=== PATIENT | male | born 1950 | race Caucasian/White ===

== ENCOUNTER → 2017-08-10 | Outpatient (CLI) | payer OTHER ==
[2017-08-10] VITALS (7 sets, daily range): BP systolic 104–127; BP diastolic 58–65
[~2017-08-10] VITALS: Ht 162.6 cm; Wt 66.0 kg
[~2017-08-10] MED LIST: NAPROSYN500 MG PO
== END | disposition home or self-care (01) ==
LOC: IVINF 12:47
DX: D64.9 Anemia, unspecified (principal)
CPT/HCPCS: 36430; 86999; P9016

== ENCOUNTER 2017-08-12 14:28 | Inpatient (IN) | payer OTHER ==
[~2017-08-12] VITALS: Ht 162.6 cm; Wt 66.4 kg
[2017-08-12 15:39] LABS: CHLORIDE 101 mEq/L (99-109); SODIUM 131 mEq/L (136-147)
[2017-08-12 15:39] LABS: INTER. NORMALIZED RATIO 1.1
[2017-08-12 15:40] LABS: GLUCOSE 118 mg/dL (70-99)
[2017-08-12 15:41] LABS: PTT 26.4 SEC (25-37)
[2017-08-12 15:44] LABS: CREATININE 0.7 mg/dL (0.6-1.3); GFR ESTIMATE (CALCULATED) > 59 mL/min/ (58.99-99999)
[2017-08-12 15:45] LABS: UREA NITROGEN (BUN) 11 mg/dL (9-23)
[2017-08-12 15:59] LABS: POTASSIUM 3.4 mEq/L (3.7-5.4)
[2017-08-12 16:09] LABS: HEMATOCRIT 30.6 % (38.0-50.0); MCH 23.5 PG (29.0-34.0); MCV 71.2 FL (86-99); PLATELET COUNT 584 K/uL (156-360); RBC DIS.WIDTH-CV 23.5 % (11.8-14.6)
[2017-08-12 16:10] LABS: HEMOGLOBIN 10.1 G/DL (12.5-16.6)
[2017-08-12 19:57] VITALS: BP 154/70
[2017-08-12 22:35] VITALS: BP 109/57
[2017-08-13] VITALS (9 sets, daily range): BP systolic 108–134; BP diastolic 58–72
[2017-08-13 06:16] LABS: IRON 11 MCG/DL (35-150); TRANSFERRIN (TIBC) 113.1 mg/dL (215-380); TRANSFERRIN SATUR. 10 % (20-55)
[2017-08-13 12:17] LABS: HEMATOCRIT 29.3 % (38.0-50.0); HEMOGLOBIN 9.1 G/DL (12.5-16.6); MCH 23.1 PG (29.0-34.0); MCHC 31.1 G/DL (30.0-36.0); MCV 74.4 FL (86-99); PLATELET COUNT 607 K/uL (156-360); RBC DIS.WIDTH-CV 24.1 % (11.8-14.6); RBC DIS.WIDTH-SD 63.8 % (39-53); RED BLOOD COUNT 3.94 M/uL (4.00-5.50); WHITE BLOOD COUNT 15.8 K/uL (4.1-10.2)
[2017-08-13 12:18] LABS: CHLORIDE 105 MEQ/L (99-109); CREATININE 0.5 MG/DL (0.6-1.3); GFR ESTIMATE (CALCULATED) > 59 mL/min/ (58.99-99999); SODIUM 133 MEQ/L (136-147); UREA NITROGEN (BUN) 10 mg/dL (9-23)
[2017-08-13 12:23] LABS: BASOPHIL (%) 0.3 % (0-1); BASOPHIL COUNT 0.1 K/uL (0-0.1); EOSINOPHIL (%) 0.2 % (0-5); IMMATURE GRANULOCYTE (%) 1.3 % (0.0-0.7); LYMPHOCYTE COUNT 1.1 K/uL (1.0-2.8); MONOCYTE (%) 4.9 % (3-12); MONOCYTE COUNT 0.8 K/uL (0-0.8); NEUTROPHIL (%) 86.3 % (45-76); NEUTROPHIL COUNT 13.6 K/uL (1.8-6.4)
[2017-08-13 12:24] LABS: GLUCOSE 88 mg/dL (70-99)
[2017-08-13 23:29] LABS: C DIFF TOXIN NEGATIVE (NEGATIVE)
[2017-08-14 04:00] VITALS: BP 110/63
[2017-08-14 09:04] VITALS: BP 106/60
[2017-08-14 12:06] VITALS: BP 110/62
[2017-08-14 15:08] LABS: STOOL OCCULT BLD 1ST SPECIMEN NEGATIVE
[2017-08-14 16:49] VITALS: BP 120/61
[2017-08-14 18:17] LABS: Folate, RBC 29.2 % (())
[2017-08-15 00:10] VITALS: BP 135/63
[2017-08-15 04:20] VITALS: BP 107/60
[2017-08-15 05:54] LABS: HEMATOCRIT 30.6 % (38.0-50.0); HEMOGLOBIN 9.4 G/DL (12.5-16.6); MCH 22.5 PG (29.0-34.0); MCHC 30.7 G/DL (30.0-36.0); MCV 73.2 FL (86-99); PLATELET COUNT 640 K/uL (156-360); RBC DIS.WIDTH-CV 23.9 % (11.8-14.6); RBC DIS.WIDTH-SD 61.5 % (39-53); RED BLOOD COUNT 4.18 M/uL (4.00-5.50); WHITE BLOOD COUNT 19.3 K/uL (4.1-10.2)
[2017-08-15 07:41] VITALS: BP 100/61
[2017-08-15 09:12] LABS: C DIFF TOXIN ND (NEGATIVE)
[2017-08-15 10:35] LABS: CHLORIDE 102 MEQ/L (99-109); POTASSIUM 3.7 MEQ/L (3.7-5.4); SODIUM 131 MEQ/L (136-147)
[2017-08-15 11:00] LABS: CREATININE 0.5 MG/DL (0.6-1.3); GFR ESTIMATE (CALCULATED) > 59 mL/min/ (58.99-99999); UREA NITROGEN (BUN) 9 mg/dL (9-23)
[2017-08-15 11:01] LABS: GLUCOSE 136 mg/dL (70-99)
[2017-08-15 11:56] VITALS: BP 99/57
[2017-08-15 15:52] VITALS: BP 108/65
[2017-08-16] VITALS (8 sets, daily range): BP systolic 91–129; BP diastolic 55–72
[2017-08-16 06:55] LABS: INTER. NORMALIZED RATIO 1.2
[2017-08-16 06:58] LABS: PTT 56.8 SEC (25-37)
[2017-08-16 07:06] LABS: HEMATOCRIT 35.2 % (38.0-50.0); HEMOGLOBIN 11.2 G/DL (12.5-16.6); MCH 23.5 PG (29.0-34.0); MCHC 31.8 G/DL (30.0-36.0); MCV 73.9 FL (86-99); PLATELET COUNT 783 K/uL (156-360); RBC DIS.WIDTH-CV 24.7 % (11.8-14.6); RED BLOOD COUNT 4.76 M/uL (4.00-5.50); WHITE BLOOD COUNT 18.4 K/uL (4.1-10.2)
[2017-08-16 07:11] LABS: CHLORIDE 101 MEQ/L (99-109); CREATININE 0.7 MG/DL (0.6-1.3); GFR ESTIMATE (CALCULATED) > 59 mL/min/ (58.99-99999); GLUCOSE 117 mg/dL (70-99); POTASSIUM 3.7 MEQ/L (3.7-5.4); SODIUM 134 MEQ/L (136-147); UREA NITROGEN (BUN) 9 mg/dL (9-23)
[2017-08-17 04:20] VITALS: BP 111/57
[2017-08-17 06:25] LABS: HEMATOCRIT 30.5 % (38.0-50.0); HEMOGLOBIN 9.5 G/DL (12.5-16.6); MCH 23.2 PG (29.0-34.0); MCHC 31.1 G/DL (30.0-36.0); MCV 74.4 FL (86-99); PLATELET COUNT 729 K/uL (156-360); RBC DIS.WIDTH-CV 24.3 % (11.8-14.6); RBC DIS.WIDTH-SD 63.5 % (39-53); WHITE BLOOD COUNT 18.8 K/uL (4.1-10.2)
[2017-08-17 06:55] LABS: CHLORIDE 100 MEQ/L (99-109); CREATININE 0.7 MG/DL (0.6-1.3); GFR ESTIMATE (CALCULATED) > 59 mL/min/ (58.99-99999); GLUCOSE 93 mg/dL (70-99); POTASSIUM 3.4 MEQ/L (3.7-5.4); SODIUM 132 MEQ/L (136-147); UREA NITROGEN (BUN) 9 mg/dL (9-23)
[2017-08-17 07:21] VITALS: BP 129/59
[2017-08-17 10:46] LABS: MAGNESIUM 2.3 mg/dl (1.3-2.7)
[2017-08-17 10:59] VITALS: BP 106/55
[2017-08-17 15:27] VITALS: BP 120/87
[2017-08-17 19:30] VITALS: BP 136/82
[2017-08-18 04:00] VITALS: BP 124/86
[2017-08-18 06:19] LABS: HEMOGLOBIN 8.3 G/DL (12.5-16.6); MCH 23.2 PG (29.0-34.0); MCHC 31.9 G/DL (30.0-36.0); MCV 72.8 FL (86-99); PLATELET COUNT 613 K/uL (156-360); RBC DIS.WIDTH-CV 24.1 % (11.8-14.6); RBC DIS.WIDTH-SD 62.1 % (39-53); RED BLOOD COUNT 3.57 M/uL (4.00-5.50); WHITE BLOOD COUNT 17.2 K/uL (4.1-10.2)
[2017-08-18 06:41] LABS: CHLORIDE 100 MEQ/L (99-109); CREATININE 0.6 MG/DL (0.6-1.3); GFR ESTIMATE (CALCULATED) > 59 mL/min/ (58.99-99999); GLUCOSE 93 mg/dL (70-99); POTASSIUM 3.2 MEQ/L (3.7-5.4); SODIUM 130 MEQ/L (136-147); UREA NITROGEN (BUN) 7 mg/dL (9-23)
[2017-08-18] MEDS ORDERED: XARELTO15 MG PO (08:06)
[2017-08-18] MEDS ORDERED: PANTOPRAZOLE SO40 MG PO (08:06)
[2017-08-18] MEDS ORDERED: XARELTO20 MG PO (08:06)
[2017-08-18] MEDS ORDERED: SODIUM CHLORIDE1 G1 PO (08:10)
[2017-08-18 08:12] VITALS: BP 130/60
[2017-08-18] MEDS ORDERED: FEROSUL325 MG PO (08:15)
[2017-08-18 11:52] VITALS: BP 120/60
== END 2017-08-18 12:48 | disposition home or self-care (01) | DRG 374 ==
LOC: EME 14:28 → 5EAST 16:10 → EDOF 16:10 → ENRESERV 16:13 → 5EAST 19:44
PROVIDERS: Emergency Medicine; Hospitalist; Internal Medicine; Specialist
PROC: 0DBK8ZX Excision of Ascending Colon, Via Natural or Artificial Opening Endoscopic, Diagnostic (ICD-10-PCS; principal; 2017-08-16)
PROC: 0DJ08ZZ Inspection of Upper Intestinal Tract, Via Natural or Artificial Opening Endoscopic (ICD-10-PCS; principal; 2017-08-16)
DX: C18.2 Malignant neoplasm of ascending colon (principal); I26.99 Other pulmonary embolism without acute cor pulmonale; E87.1 Hypo-osmolality and hyponatremia; E87.6 Hypokalemia; D50.0 Iron deficiency anemia secondary to blood loss (chronic); E83.51 Hypocalcemia; K92.1 Melena; R55 Syncope and collapse; D47.3 Essential (hemorrhagic) thrombocythemia; K64.8 Other hemorrhoids; K29.70 Gastritis, unspecified, without bleeding; K29.80 Duodenitis without bleeding
CPT/HCPCS: 36415; 36430; 74020; 80048; 80048 91; 80053; 82272; 82378; 82607; 82747 90; 83540; 83735; 84466; 85025; 85027; 85610; 85730; 86850; 86900; 86901; 86920; 86999; 87177; 87493; 87506; 88305; 93005; 93970; 99281; 99285; C9113; J2405; J2765; J3480; J7030; J7050; P9016; Q0138

== ENCOUNTER 2017-08-29 10:58 | Inpatient (IN) | payer OTHER ==
[~2017-08-29] VITALS: Ht 162.6 cm; Wt 62.5 kg
[~2017-08-29 10:58] MED LIST changes: +FEROSUL325 MG PO; +PANTOPRAZOLE SO40 MG PO; +SODIUM CHLORIDE1 G1 PO; +XARELTO15 MG PO; +XARELTO20 MG PO
[2017-08-29 12:00] LABS: HEMATOCRIT 26.8 % (38.0-50.0); HEMOGLOBIN 8.8 G/DL (12.5-16.6); MCH 24.3 PG (29.0-34.0); MCHC 32.8 G/DL (30.0-36.0); PLATELET COUNT 684 K/uL (156-360); RBC DIS.WIDTH-CV 25.9 % (11.8-14.6); RBC DIS.WIDTH-SD 65.5 % (39-53); RED BLOOD COUNT 3.62 M/uL (4.00-5.50); WHITE BLOOD COUNT 21.3 K/uL (4.1-10.2)
[2017-08-29 12:03] LABS: ALBUMIN 1.6 g/dL (3.2-4.8); CHLORIDE 102 mEq/L (99-109); POTASSIUM 3.9 mEq/L (3.7-5.4); SODIUM 130 mEq/L (136-147)
[2017-08-29 12:05] LABS: GLUCOSE 136 mg/dL (70-99); TOTAL PROTEIN 5.3 g/dL (6.4-8.3)
[2017-08-29 12:07] LABS: TOTAL BILIRUBIN 0.3 mg/dL (0.0-1.0)
[2017-08-29 12:09] LABS: ALKALINE PHOSPHATASE 124 IU/L (3-129); CREATININE 0.7 mg/dL (0.6-1.3); GFR ESTIMATE (CALCULATED) > 59 mL/min/ (58.99-99999)
[2017-08-29 12:10] LABS: UREA NITROGEN (BUN) 14 mg/dL (9-23)
[2017-08-29 12:11] LABS: AST (GOT) 18 IU/L (2-34)
[2017-08-29 12:12] LABS: ALT (GPT) 10 IU/L (3-49); LIPASE 17 U/L (1.0-51.0)
[2017-08-29] MEDS ORDERED: PROTONIX40 MG PO (14:32)
[2017-08-29 15:13] LABS: INTER. NORMALIZED RATIO 2.4
[2017-08-29 18:36] LABS: APPEARANCE CLEAR ((CLEAR)); BILIRUBIN NEGATIVE; BLOOD NEGATIVE; COLOR YELLOW ((YELLOW)); GLUCOSE (STRIP) NEGATIVE; KETONES NEGATIVE; LEUKOCYTES NEGATIVE; NITRITE NEGATIVE; PROTEIN (STRIP) NEGATIVE; SPECIFIC GRAVITY 1.018 (1.000-1.030); UCUL ADDED? NO; UROBILINOGEN 0.2 MG/DL (0.2-1.0)
[2017-08-29 19:49] VITALS: BP 127/76
[2017-08-29 23:03] VITALS: BP 101/54
[2017-08-30 08:00] VITALS: BP 100/59
[2017-08-30 08:56] LABS: HEMATOCRIT 22.8 % (38.0-50.0); HEMOGLOBIN 7.2 G/DL (12.5-16.6); MCH 23.5 PG (29.0-34.0); MCHC 31.6 G/DL (30.0-36.0); MCV 74.5 FL (86-99); PLATELET COUNT 613 K/uL (156-360); RBC DIS.WIDTH-CV 26.4 % (11.8-14.6); RBC DIS.WIDTH-SD 67.5 % (39-53); RED BLOOD COUNT 3.06 M/uL (4.00-5.50); WHITE BLOOD COUNT 17.8 K/uL (4.1-10.2)
[2017-08-30 09:15] LABS: CHLORIDE 109 mEq/L (99-109); POTASSIUM 3.2 mEq/L (3.7-5.4); SODIUM 132 mEq/L (136-147)
[2017-08-30 09:20] LABS: GLUCOSE 78 mg/dL (70-99)
[2017-08-30 09:21] LABS: CREATININE 0.5 mg/dL (0.6-1.3); GFR ESTIMATE (CALCULATED) > 59 mL/min/ (58.99-99999)
[2017-08-30 09:22] LABS: UREA NITROGEN (BUN) 13 mg/dL (9-23)
[2017-08-30 11:59] VITALS: BP 110/75
[2017-08-30 15:54] LABS: HEMATOCRIT 22.6 % (38.0-50.0); HEMOGLOBIN 7.4 G/DL (12.5-16.6); MCV 75.3 FL (86-99)
[2017-08-30 16:26] VITALS: BP 119/83
[2017-08-30 19:45] VITALS: BP 99/55
[2017-08-30 23:52] VITALS: BP 117/61
[2017-08-31 06:38] LABS: CHLORIDE 108 MEQ/L (99-109); CREATININE 0.5 MG/DL (0.6-1.3); GFR ESTIMATE (CALCULATED) > 59 mL/min/ (58.99-99999); GLUCOSE 91 mg/dL (70-99); POTASSIUM 3.1 MEQ/L (3.7-5.4); SODIUM 135 MEQ/L (136-147); UREA NITROGEN (BUN) 9 mg/dL (9-23)
[2017-08-31 06:46] LABS: MCH 24.5 PG (29.0-34.0); MCHC 32.5 G/DL (30.0-36.0); MCV 75.5 FL (86-99); PLATELET COUNT 486 K/uL (156-360); RBC DIS.WIDTH-SD 67.6 % (39-53); RED BLOOD COUNT 2.65 M/uL (4.00-5.50); WHITE BLOOD COUNT 17.1 K/uL (4.1-10.2)
[2017-08-31 06:58] LABS: HEMOGLOBIN 6.5 G/DL (12.5-16.6)
[2017-08-31 07:59] VITALS: BP 102/51
[2017-08-31 11:58] LABS: BASE EXCESS -4.2 mEq/L (-3 to +3); BICARBONATE 19.8 mEq/L (22-26); CARBOXY HGB 0.3 % (0-5); PCO2 32 mm Hg (35-45); PO2 102 mm Hg (80-100)
[2017-08-31 12:02] LABS: COMMENTS - BLOOD GASES FROM O.R.
[2017-08-31 12:08] LABS: MCV 77.9 FL (86-99)
[2017-08-31 12:09] LABS: HEMOGLOBIN 11.1 G/DL (12.5-16.6)
[2017-08-31 12:16] LABS: INTER. NORMALIZED RATIO 1.2
[2017-08-31 12:17] LABS: ALBUMIN 2.2 g/dL (3.2-4.8); CHLORIDE 113 mEq/L (99-109); POTASSIUM 2.9 mEq/L (3.7-5.4); SODIUM 135 mEq/L (136-147)
[2017-08-31 12:19] LABS: GLUCOSE 110 mg/dL (70-99)
[2017-08-31 12:23] LABS: ALKALINE PHOSPHATASE 149 IU/L (3-129); CREATININE 0.7 mg/dL (0.6-1.3); GFR ESTIMATE (CALCULATED) > 59 mL/min/ (58.99-99999)
[2017-08-31 12:24] LABS: UREA NITROGEN (BUN) 8 mg/dL (9-23)
[2017-08-31 12:26] LABS: ALT (GPT) 14 IU/L (3-49)
[2017-08-31 12:32] LABS: AST (GOT) 40 IU/L (2-34); TOTAL PROTEIN 4.5 g/dL (6.4-8.3)
[2017-08-31 14:48] LABS: STOOL OCCULT BLD 1ST SPECIMEN NEGATIVE
[2017-08-31 16:05] LABS: BASE EXCESS 0 mEq/L (-3 to +3); BICARBONATE 21.4 mEq/L (22-26); CARBOXY HGB 0 % (0-5); METHEMOGLOBIN 1.3 % (0-1.5)
[2017-08-31 16:06] LABS: COMMENTS - BLOOD GASES A+C+; DEVICE 840; FI02 60 %; MECHANICAL RATE 16 resp/min; MODE A/C; PCO2 25 mm Hg (35-45); PEEP 5 CM/H20; PO2 203 mm Hg (80-100); SITE LR; TOTAL RESP RATE 16 resp/min; pH 7.54 (7.35-7.45)
[2017-08-31 20:48] LABS: ALBUMIN 1.9 G/DL (3.2-4.8); ALKALINE PHOSPHATASE 175 IU/L (3-129); ALT (GPT) 17 IU/L (3-49); AST (GOT) 36 IU/L (2-34); CHLORIDE 112 MEQ/L (99-109); CREATININE 0.5 MG/DL (0.6-1.3); GFR ESTIMATE (CALCULATED) > 59 mL/min/ (58.99-99999); GLUCOSE 116 mg/dL (70-99); SODIUM 134 MEQ/L (136-147); TOTAL BILIRUBIN 1.6 MG/DL (0.0-1.0); UREA NITROGEN (BUN) 9 mg/dL (9-23)
[2017-08-31 20:49] LABS: POTASSIUM 5.8 MEQ/L (3.7-5.4)
[2017-08-31 20:52] LABS: HEMATOCRIT 34.3 % (38.0-50.0); HEMOGLOBIN 11.6 G/DL (12.5-16.6); MCH 26.2 PG (29.0-34.0); MCHC 33.8 G/DL (30.0-36.0); MCV 77.4 FL (86-99); PLATELET COUNT 313 K/uL (156-360); RBC DIS.WIDTH-CV 21.7 % (11.8-14.6); RBC DIS.WIDTH-SD 59.9 % (39-53); RED BLOOD COUNT 4.43 M/uL (4.00-5.50); WHITE BLOOD COUNT 30.8 K/uL (4.1-10.2)
[2017-08-31 22:11] LABS: BASE EXCESS -2.5 mEq/L (-3 to +3); BICARBONATE 19.8 mEq/L (22-26); CARBOXY HGB 0.9 % (0-5); METHEMOGLOBIN 1.3 % (0-1.5); PCO2 26 mm Hg (35-45); pH 7.49 (7.35-7.45)
[2017-08-31 22:12] LABS: COMMENTS - BLOOD GASES C+A+; DEVICE VENTILATOR; FI02 30 %; MECHANICAL RATE 16 resp/min; MODE AC; PEEP 5 CM/H20; PO2 115 mm Hg (80-100); SITE LR; TIDAL VOLUME 500 ML; TOTAL RESP RATE 16 resp/min
[2017-08-31 22:24] LABS: INTER. NORMALIZED RATIO 1.3
[2017-08-31 22:27] LABS: PTT 31.3 SEC (25-37)
[2017-08-31 22:31] LABS: CHLORIDE 112 MEQ/L (99-109); POTASSIUM 3.9 MEQ/L (3.7-5.4); SODIUM 136 MEQ/L (136-147)
[2017-08-31 23:30] VITALS: BP 83/56
[2017-09-01] VITALS (23 sets, daily range): BP systolic 80–127; BP diastolic 42–85
[2017-09-01 07:17] LABS: BASOPHIL (%) 0.3 % (0-1); BASOPHIL COUNT 0.1 K/uL (0-0.1); EOSINOPHIL (%) 0 % (0-5); HEMATOCRIT 31.3 % (38.0-50.0); HEMOGLOBIN 10.3 G/DL (12.5-16.6); IMMATURE GRANULOCYTE (%) 3.1 % (0.0-0.7); LYMPHOCYTE (%) 3.1 % (15-42); LYMPHOCYTE COUNT 0.9 K/uL (1.0-2.8); MCH 25.7 PG (29.0-34.0); MCHC 32.9 G/DL (30.0-36.0); MCV 78.1 FL (86-99); MONOCYTE (%) 1.5 % (3-12); MONOCYTE COUNT 0.4 K/uL (0-0.8); NEUTROPHIL COUNT 25.7 K/uL (1.8-6.4); PLATELET COUNT 317 K/uL (156-360); RBC DIS.WIDTH-CV 22.4 % (11.8-14.6); RED BLOOD COUNT 4.01 M/uL (4.00-5.50); WHITE BLOOD COUNT 27.9 K/uL (4.1-10.2)
[2017-09-01 07:44] LABS: CHLORIDE 111 MEQ/L (99-109); CREATININE 0.6 MG/DL (0.6-1.3); GFR ESTIMATE (CALCULATED) > 59 mL/min/ (58.99-99999); GLUCOSE 110 mg/dL (70-99); POTASSIUM 4.2 MEQ/L (3.7-5.4); SODIUM 138 MEQ/L (136-147); UREA NITROGEN (BUN) 9 mg/dL (9-23)
[2017-09-01 08:34] LABS: MAGNESIUM 1.8 mg/dl (1.3-2.7); PHOSPHORUS 2.5 mg/dL (2.5-4.9)
[2017-09-02] VITALS (11 sets, daily range): BP systolic 100–136; BP diastolic 55–73
[2017-09-02 07:36] LABS: BASOPHIL (%) 0.2 % (0-1); BASOPHIL COUNT 0.1 K/uL (0-0.1); EOSINOPHIL (%) 0 % (0-5); HEMATOCRIT 26.4 % (38.0-50.0); HEMOGLOBIN 9.2 G/DL (12.5-16.6); IMMATURE GRANULOCYTE (%) 2.5 % (0.0-0.7); LYMPHOCYTE (%) 2.9 % (15-42); LYMPHOCYTE COUNT 0.7 K/uL (1.0-2.8); MCH 27.1 PG (29.0-34.0); MCHC 34.8 G/DL (30.0-36.0); MCV 77.9 FL (86-99); MONOCYTE (%) 1.7 % (3-12); MONOCYTE COUNT 0.4 K/uL (0-0.8); NEUTROPHIL (%) 92.7 % (45-76); PLATELET COUNT 252 K/uL (156-360); RBC DIS.WIDTH-CV 23.4 % (11.8-14.6); RBC DIS.WIDTH-SD 65.1 % (39-53); RED BLOOD COUNT 3.39 M/uL (4.00-5.50); WHITE BLOOD COUNT 24.8 K/uL (4.1-10.2)
[2017-09-02 08:09] LABS: CHLORIDE 111 MEQ/L (99-109); CREATININE 0.4 MG/DL (0.6-1.3); GFR ESTIMATE (CALCULATED) > 59 mL/min/ (58.99-99999); GLUCOSE 87 mg/dL (70-99); MAGNESIUM 1.6 mg/dl (1.3-2.7); PHOSPHORUS 2.5 mg/dL (2.5-4.9); POTASSIUM 3.5 MEQ/L (3.7-5.4); SODIUM 139 MEQ/L (136-147); UREA NITROGEN (BUN) 7 mg/dL (9-23)
[2017-09-02 08:44] LABS: CHLORIDE 111 MEQ/L (99-109); CREATININE 0.4 MG/DL (0.6-1.3); GFR ESTIMATE (CALCULATED) > 59 mL/min/ (58.99-99999); GLUCOSE 87 mg/dL (70-99); POTASSIUM 3.5 MEQ/L (3.7-5.4); SODIUM 139 MEQ/L (136-147); UREA NITROGEN (BUN) 7 mg/dL (9-23)
[2017-09-02 08:45] LABS: ALBUMIN 1.6 G/DL (3.2-4.8); ALT (GPT) 12 IU/L (3-49); AST (GOT) 17 IU/L (2-34); TOTAL BILIRUBIN 0.6 MG/DL (0.0-1.0); TOTAL PROTEIN 3.7 G/DL (6.4-8.3)
[2017-09-02 08:46] LABS: ALKALINE PHOSPHATASE 115 IU/L (3-129)
[2017-09-03 06:08] LABS: BASOPHIL (%) 0.2 % (0-1); EOSINOPHIL (%) 0.2 % (0-5); HEMATOCRIT 27.8 % (38.0-50.0); HEMOGLOBIN 9.2 G/DL (12.5-16.6); IMMATURE GRANULOCYTE (%) 2.3 % (0.0-0.7); LYMPHOCYTE (%) 4.5 % (15-42); LYMPHOCYTE COUNT 0.8 K/uL (1.0-2.8); MCH 25.8 PG (29.0-34.0); MCHC 33.1 G/DL (30.0-36.0); MCV 77.9 FL (86-99); MONOCYTE (%) 2.2 % (3-12); MONOCYTE COUNT 0.4 K/uL (0-0.8); NEUTROPHIL (%) 90.6 % (45-76); NEUTROPHIL COUNT 16.7 K/uL (1.8-6.4); PLATELET COUNT 268 K/uL (156-360); RBC DIS.WIDTH-CV 23.2 % (11.8-14.6); RBC DIS.WIDTH-SD 65.1 % (39-53); RED BLOOD COUNT 3.57 M/uL (4.00-5.50); WHITE BLOOD COUNT 18.4 K/uL (4.1-10.2)
[2017-09-03 08:15] VITALS: BP 126/70
[2017-09-03 09:29] LABS: ALBUMIN 1.6 G/DL (3.2-4.8); ALKALINE PHOSPHATASE 108 IU/L (3-129); ALT (GPT) 11 IU/L (3-49); AST (GOT) 15 IU/L (2-34); CHLORIDE 110 MEQ/L (99-109); CREATININE 0.4 MG/DL (0.6-1.3); GFR ESTIMATE (CALCULATED) > 59 mL/min/ (58.99-99999); GLUCOSE 70 mg/dL (70-99); POTASSIUM 3.5 MEQ/L (3.7-5.4); SODIUM 140 MEQ/L (136-147); TOTAL BILIRUBIN 0.5 MG/DL (0.0-1.0); TOTAL PROTEIN 3.9 G/DL (6.4-8.3); UREA NITROGEN (BUN) 7 mg/dL (9-23)
[2017-09-03 15:00] VITALS: BP 130/82
[2017-09-03 19:11] VITALS: BP 140/65
[2017-09-04 00:03] VITALS: BP 158/74
[2017-09-04 07:27] VITALS: BP 117/59
[2017-09-04 09:16] LABS: HEMATOCRIT 25.2 % (38.0-50.0); HEMOGLOBIN 8.2 G/DL (12.5-16.6); MCH 26.6 PG (29.0-34.0); MCHC 32.5 G/DL (30.0-36.0); MCV 81.8 FL (86-99); PLATELET COUNT 266 K/uL (156-360); RBC DIS.WIDTH-CV 23.9 % (11.8-14.6); RBC DIS.WIDTH-SD 70.5 % (39-53); RED BLOOD COUNT 3.08 M/uL (4.00-5.50); WHITE BLOOD COUNT 13.6 K/uL (4.1-10.2)
[2017-09-04 10:57] LABS: ALKALINE PHOSPHATASE 82 IU/L (3-129); ALT (GPT) 9 IU/L (3-49); AST (GOT) 17 IU/L (2-34); CHLORIDE 111 MEQ/L (99-109); CREATININE 0.5 MG/DL (0.6-1.3); GFR ESTIMATE (CALCULATED) > 59 mL/min/ (58.99-99999); GLUCOSE 55 mg/dL (70-99); POTASSIUM 3.4 MEQ/L (3.7-5.4); SODIUM 141 MEQ/L (136-147); THYROTROPIN (TSH) 2.6 MIU/L (0.4-5.5); TOTAL PROTEIN 4.2 G/DL (6.4-8.3); UREA NITROGEN (BUN) 5 mg/dL (9-23)
[2017-09-04 10:59] LABS: TOTAL BILIRUBIN 0.7 MG/DL (0.0-1.0)
[2017-09-04 15:18] VITALS: BP 126/59
[2017-09-05 00:12] VITALS: BP 157/81
[2017-09-05 04:21] VITALS: BP 138/67
[2017-09-05 06:31] LABS: BASOPHIL (%) 0.3 % (0-1); EOSINOPHIL (%) 0.2 % (0-5); HEMATOCRIT 29.9 % (38.0-50.0); HEMOGLOBIN 9.6 G/DL (12.5-16.6); IMMATURE GRANULOCYTE (%) 2.3 % (0.0-0.7); LYMPHOCYTE (%) 4.2 % (15-42); LYMPHOCYTE COUNT 0.6 K/uL (1.0-2.8); MCH 25.7 PG (29.0-34.0); MCHC 32.1 G/DL (30.0-36.0); MCV 79.9 FL (86-99); MONOCYTE (%) 3.6 % (3-12); MONOCYTE COUNT 0.5 K/uL (0-0.8); NEUTROPHIL (%) 89.4 % (45-76); NEUTROPHIL COUNT 13.5 K/uL (1.8-6.4); PLATELET COUNT 308 K/uL (156-360); RBC DIS.WIDTH-CV 23.2 % (11.8-14.6); RBC DIS.WIDTH-SD 66.7 % (39-53); WHITE BLOOD COUNT 15.1 K/uL (4.1-10.2)
[2017-09-05 06:34] LABS: RED BLOOD COUNT 3.74 M/uL (4.00-5.50)
[2017-09-05 06:52] LABS: CHLORIDE 103 MEQ/L (99-109); CREATININE 0.4 MG/DL (0.6-1.3); GFR ESTIMATE (CALCULATED) > 59 mL/min/ (58.99-99999); GLUCOSE 103 mg/dL (70-99); POTASSIUM 3.4 MEQ/L (3.7-5.4); SODIUM 138 MEQ/L (136-147); UREA NITROGEN (BUN) 2 mg/dL (9-23)
[2017-09-05 07:44] VITALS: BP 132/71
[2017-09-05 16:19] VITALS: BP 128/77
[2017-09-06 04:57] VITALS: BP 126/65
[2017-09-06 07:26] VITALS: BP 117/61
[2017-09-06 09:49] LABS: HEMATOCRIT 24.9 % (38.0-50.0); HEMOGLOBIN 8.3 G/DL (12.5-16.6); MCH 26.2 PG (29.0-34.0); MCHC 33.3 G/DL (30.0-36.0); MCV 78.5 FL (86-99); PLATELET COUNT 307 K/uL (156-360); RBC DIS.WIDTH-CV 22.9 % (11.8-14.6); RBC DIS.WIDTH-SD 64.7 % (39-53); RED BLOOD COUNT 3.17 M/uL (4.00-5.50); WHITE BLOOD COUNT 12.7 K/uL (4.1-10.2)
[2017-09-06 10:16] LABS: CHLORIDE 103 MEQ/L (99-109); CREATININE 0.3 MG/DL (0.6-1.3); GFR ESTIMATE (CALCULATED) > 59 mL/min/ (58.99-99999); GLUCOSE 119 mg/dL (70-99); POTASSIUM 3.5 MEQ/L (3.7-5.4); SODIUM 137 MEQ/L (136-147)
[2017-09-06 10:20] LABS: UREA NITROGEN (BUN) < 2 mg/dL (9-23)
[2017-09-06 11:30] VITALS: BP 124/64
[2017-09-06 15:55] VITALS: BP 114/59
[2017-09-07 00:06] VITALS: BP 109/66
[2017-09-07 04:00] VITALS: BP 132/71
[2017-09-07 06:18] LABS: BASOPHIL (%) 0.2 % (0-1); EOSINOPHIL (%) 0 % (0-5); HEMATOCRIT 26.7 % (38.0-50.0); HEMOGLOBIN 9.1 G/DL (12.5-16.6); IMMATURE GRANULOCYTE (%) 2.2 % (0.0-0.7); LYMPHOCYTE (%) 1.9 % (15-42); LYMPHOCYTE COUNT 0.3 K/uL (1.0-2.8); MCHC 34.1 G/DL (30.0-36.0); MCV 79.2 FL (86-99); MONOCYTE COUNT 0.2 K/uL (0-0.8); NEUTROPHIL (%) 94.7 % (45-76); NEUTROPHIL COUNT 15.6 K/uL (1.8-6.4); PLATELET COUNT 388 K/uL (156-360); RBC DIS.WIDTH-CV 23.9 % (11.8-14.6); RBC DIS.WIDTH-SD 66.3 % (39-53); RED BLOOD COUNT 3.37 M/uL (4.00-5.50); WHITE BLOOD COUNT 16.4 K/uL (4.1-10.2)
[2017-09-07 06:58] LABS: INTER. NORMALIZED RATIO 1.3
[2017-09-07 07:25] VITALS: BP 110/72
[2017-09-07 07:31] LABS: PTT 43.9 SEC (25-37)
[2017-09-07 07:44] LABS: ALBUMIN 2.3 G/DL (3.2-4.8); ALKALINE PHOSPHATASE 74 IU/L (3-129); ALT (GPT) 6 IU/L (3-49); AST (GOT) 12 IU/L (2-34); CHLORIDE 104 MEQ/L (99-109); CREATININE 0.3 MG/DL (0.6-1.3); GFR ESTIMATE (CALCULATED) > 59 mL/min/ (58.99-99999); GLUCOSE 97 mg/dL (70-99); POTASSIUM 3.6 MEQ/L (3.7-5.4); SODIUM 139 MEQ/L (136-147); TOTAL PROTEIN 4.6 G/DL (6.4-8.3); UREA NITROGEN (BUN) 3 mg/dL (9-23)
[2017-09-07 11:55] VITALS: BP 115/65
[2017-09-07 15:00] VITALS: BP 117/68
[2017-09-07 19:15] VITALS: BP 120/66
[2017-09-08] VITALS (7 sets, daily range): BP systolic 104–140; BP diastolic 56–84
[2017-09-08 05:57] LABS: BASOPHIL (%) 0.1 % (0-1); EOSINOPHIL (%) 0 % (0-5); HEMATOCRIT 24.2 % (38.0-50.0); IMMATURE GRANULOCYTE (%) 1.2 % (0.0-0.7); LYMPHOCYTE (%) 2.3 % (15-42); LYMPHOCYTE COUNT 0.5 K/uL (1.0-2.8); MCH 26.3 PG (29.0-34.0); MCHC 33.1 G/DL (30.0-36.0); MCV 79.6 FL (86-99); MONOCYTE (%) 1.6 % (3-12); MONOCYTE COUNT 0.3 K/uL (0-0.8); NEUTROPHIL (%) 94.8 % (45-76); NEUTROPHIL COUNT 20.1 K/uL (1.8-6.4); PLATELET COUNT 392 K/uL (156-360); RBC DIS.WIDTH-SD 68.4 % (39-53); RED BLOOD COUNT 3.04 M/uL (4.00-5.50); WHITE BLOOD COUNT 21.2 K/uL (4.1-10.2)
[2017-09-08 07:54] LABS: CARCINOEMBR.ANTIGEN 1.4 NG/ML
[2017-09-08 08:24] LABS: C-REACTIVE PROTEIN > 240.0 MG/L (0-10); CHLORIDE 105 MEQ/L (99-109); CREATININE 0.3 MG/DL (0.6-1.3); GFR ESTIMATE (CALCULATED) > 59 mL/min/ (58.99-99999); GLUCOSE 111 mg/dL (70-99); POTASSIUM 3.7 MEQ/L (3.7-5.4); SODIUM 138 MEQ/L (136-147); UREA NITROGEN (BUN) 8 mg/dL (9-23)
[2017-09-08 08:26] LABS: PREALBUMIN < 3.0 mg/dL (10-40)
[2017-09-08 17:29] LABS: C DIFF TOXIN NEGATIVE (NEGATIVE)
[2017-09-09 00:07] VITALS: BP 109/59
[2017-09-09 05:11] VITALS: BP 113/59
[2017-09-09 05:54] LABS: BASOPHIL (%) 0.1 % (0-1); EOSINOPHIL (%) 0.1 % (0-5); IMMATURE GRANULOCYTE (%) 1.3 % (0.0-0.7); LYMPHOCYTE (%) 2.6 % (15-42); LYMPHOCYTE COUNT 0.6 K/uL (1.0-2.8); MCH 26.8 PG (29.0-34.0); MCHC 33.3 G/DL (30.0-36.0); MCV 80.5 FL (86-99); MONOCYTE (%) 0.9 % (3-12); MONOCYTE COUNT 0.2 K/uL (0-0.8); NEUTROPHIL COUNT 23.3 K/uL (1.8-6.4); PLATELET COUNT 398 K/uL (156-360); RBC DIS.WIDTH-CV 24.9 % (11.8-14.6); RBC DIS.WIDTH-SD 71.3 % (39-53); RED BLOOD COUNT 2.98 M/uL (4.00-5.50); WHITE BLOOD COUNT 24.6 K/uL (4.1-10.2)
[2017-09-09 06:26] LABS: ALBUMIN 2.2 G/DL (3.2-4.8); ALKALINE PHOSPHATASE 74 IU/L (3-129); ALT (GPT) 5 IU/L (3-49); AST (GOT) 9 IU/L (2-34); CHLORIDE 107 MEQ/L (99-109); CREATININE 0.4 MG/DL (0.6-1.3); DIRECT BILIRUBIN 0.3 mg/dL (0.0-0.3); GFR ESTIMATE (CALCULATED) > 59 mL/min/ (58.99-99999); GLUCOSE 98 mg/dL (70-99); MAGNESIUM 1.7 mg/dl (1.3-2.7); PHOSPHORUS 1.8 mg/dL (2.5-4.9); POTASSIUM 3.5 MEQ/L (3.7-5.4); PREALBUMIN < 3.0 mg/dL (10-40); SODIUM 142 MEQ/L (136-147); TOTAL BILIRUBIN 0.6 MG/DL (0.0-1.0); TOTAL PROTEIN 4.8 G/DL (6.4-8.3); TRIGLYCERIDES 64 MG/DL (Normal: <150); UREA NITROGEN (BUN) 10 mg/dL (9-23)
[2017-09-09 08:46] VITALS: BP 107/66
[2017-09-09 12:16] VITALS: BP 123/68
[2017-09-09 16:18] VITALS: BP 117/67
[2017-09-09 20:00] VITALS: BP 112/65
[2017-09-10] VITALS (9 sets, daily range): BP systolic 104–123; BP diastolic 65–69
[2017-09-10 02:59] LABS: CHLORIDE 112 mEq/L (99-109); POTASSIUM 3.8 mEq/L (3.7-5.4); SODIUM 142 mEq/L (136-147)
[2017-09-10 03:00] LABS: MAGNESIUM 1.7 mg/dL (1.3-2.7)
[2017-09-10 03:05] LABS: CREATININE 0.5 mg/dL (0.6-1.3); GFR ESTIMATE (CALCULATED) > 59 mL/min/ (58.99-99999); PHOSPHORUS 1.9 mg/dL (2.5-4.9)
[2017-09-10 03:06] LABS: UREA NITROGEN (BUN) 11 mg/dL (9-23)
[2017-09-10 03:19] LABS: GLUCOSE 163 mg/dL (70-99)
[2017-09-10 08:53] LABS: HEMOGLOBIN 7.5 G/DL (12.5-16.6); MCH 27.2 PG (29.0-34.0); MCHC 32.6 G/DL (30.0-36.0); MCV 83.3 FL (86-99); PLATELET COUNT 363 K/uL (156-360); RBC DIS.WIDTH-CV 25.9 % (11.8-14.6); RBC DIS.WIDTH-SD 75.8 % (39-53); RED BLOOD COUNT 2.76 M/uL (4.00-5.50); WHITE BLOOD COUNT 21.9 K/uL (4.1-10.2)
[2017-09-10 16:42] LABS: HEMOGLOBIN 7.6 G/DL (12.5-16.6); MCV 80.7 FL (86-99)
[2017-09-11] VITALS (7 sets, daily range): BP systolic 122–148; BP diastolic 72–79
[2017-09-11 06:34] LABS: CHLORIDE 113 MEQ/L (99-109); CREATININE 0.4 MG/DL (0.6-1.3); GFR ESTIMATE (CALCULATED) > 59 mL/min/ (58.99-99999); GLUCOSE 119 mg/dL (70-99); MAGNESIUM 2.4 mg/dl (1.3-2.7); PHOSPHORUS 2.4 mg/dL (2.5-4.9); POTASSIUM 4.8 MEQ/L (3.7-5.4); SODIUM 143 MEQ/L (136-147); UREA NITROGEN (BUN) 12 mg/dL (9-23)
[2017-09-11 08:01] LABS: HEMATOCRIT 26.9 % (38.0-50.0); HEMOGLOBIN 8.8 G/DL (12.5-16.6); MCH 27.1 PG (29.0-34.0); MCHC 32.7 G/DL (30.0-36.0); MCV 82.8 FL (86-99); PLATELET COUNT 426 K/uL (156-360); RBC DIS.WIDTH-CV 24.2 % (11.8-14.6); RBC DIS.WIDTH-SD 70.7 % (39-53); RED BLOOD COUNT 3.25 M/uL (4.00-5.50); WHITE BLOOD COUNT 18.5 K/uL (4.1-10.2)
[2017-09-11 13:17] LABS: APPEARANCE CLEAR ((CLEAR)); BILIRUBIN NEGATIVE; BLOOD SMALL; COLOR STRAW ((YELLOW)); GLUCOSE (STRIP) NEGATIVE; KETONES NEGATIVE; LEUKOCYTES NEGATIVE; NITRITE NEGATIVE; PROTEIN (STRIP) NEGATIVE; SPECIFIC GRAVITY 1.009 (1.000-1.030); UROBILINOGEN 0.2 MG/DL (0.2-1.0)
[2017-09-11 13:22] LABS: BACTERIA NONE SEEN /HPF; EPITHELIAL CELLS NONE SEEN /HPF; HYALINE CASTS 0-5 /LPF; MUCUS TRACE /LPF; RED BLOOD CELLS 0-5 /HPF (0-5); UCUL ADDED? NO; WHITE BLOOD CELLS 0-5 /HPF (0-5)
[2017-09-12 03:37] VITALS: BP 139/75
[2017-09-12 05:43] LABS: HEMATOCRIT 24.9 % (38.0-50.0); HEMOGLOBIN 8.2 G/DL (12.5-16.6); MCH 26.9 PG (29.0-34.0); MCHC 32.9 G/DL (30.0-36.0); MCV 81.6 FL (86-99); NRBC (%) 0.2 /100 WBC (0-0); PLATELET COUNT 499 K/uL (156-360); RBC DIS.WIDTH-CV 23.9 % (11.8-14.6); RBC DIS.WIDTH-SD 70.8 % (39-53); RED BLOOD COUNT 3.05 M/uL (4.00-5.50)
[2017-09-12 06:13] LABS: ABS NEUTROPHIL COUNT 15.3; ANISOCYTOSIS 2+; BAND NEUTROPHILS 0.9 % (0-8.0); EOSINOPHIL ABS CT 0.1; EOSINOPHILS 0.9 % (0-5.0); HELMET CELLS 1+; HEMATOLOGY COMMENT 1 SN; HYPOCHROMASIA 2+; LYMPHOCYTES 0.9 % (15.0-45.0); MACROCYTES 2+; MONOCYTES 2.7 % (0-9.0); NUCLEATED RBC'S 0.9; PLAT.SUFFICIENCY INCREASED; POLYCHROMASIA 1+; SEG.NEUTROPHILS 94.6 % (46.0-76.0); TARGET CELLS 3+; TEAR DROP CELLS 1+
[2017-09-12 06:32] LABS: ALBUMIN 2.2 G/DL (3.2-4.8); ALT (GPT) 5 IU/L (3-49); AST (GOT) 9 IU/L (2-34); CHLORIDE 111 MEQ/L (99-109); CREATININE 0.4 MG/DL (0.6-1.3); DIRECT BILIRUBIN 0.2 mg/dL (0.0-0.3); GFR ESTIMATE (CALCULATED) > 59 mL/min/ (58.99-99999); GLUCOSE 132 mg/dL (70-99); PHOSPHORUS 2.8 mg/dL (2.5-4.9); POTASSIUM 4.1 MEQ/L (3.7-5.4); SODIUM 141 MEQ/L (136-147); TOTAL BILIRUBIN 0.5 MG/DL (0.0-1.0); TOTAL PROTEIN 5.4 G/DL (6.4-8.3); TRIGLYCERIDES 77 MG/DL (Normal: <150); UREA NITROGEN (BUN) 12 mg/dL (9-23)
[2017-09-12 06:33] LABS: ALKALINE PHOSPHATASE 149 IU/L (3-129); PREALBUMIN 3.9 mg/dL (10-40)
[2017-09-12 06:34] LABS: ALKALINE PHOSPHATASE 153 IU/L (3-129); ALT (GPT) 5 IU/L (3-49); AST (GOT) 10 IU/L (2-34); CHLORIDE 110 MEQ/L (99-109); CREATININE 0.4 MG/DL (0.6-1.3); GFR ESTIMATE (CALCULATED) > 59 mL/min/ (58.99-99999); GLUCOSE 130 mg/dL (70-99); POTASSIUM 4.4 MEQ/L (3.7-5.4); SODIUM 140 MEQ/L (136-147); TOTAL BILIRUBIN 0.5 MG/DL (0.0-1.0); UREA NITROGEN (BUN) 12 mg/dL (9-23)
[2017-09-12 08:00] VITALS: BP 127/69
[2017-09-12 11:32] VITALS: BP 137/76
[2017-09-12 17:21] VITALS: BP 144/77
[2017-09-12 20:45] VITALS: BP 135/81
[2017-09-13 00:10] VITALS: BP 132/74
[2017-09-13 03:38] VITALS: BP 128/85
[2017-09-13 07:30] VITALS: BP 132/65
[2017-09-13 07:42] LABS: HEMATOCRIT 26.3 % (38.0-50.0); HEMOGLOBIN 8.7 G/DL (12.5-16.6); MCHC 33.1 G/DL (30.0-36.0); MCV 81.7 FL (86-99); PLATELET COUNT 517 K/uL (156-360); RBC DIS.WIDTH-SD 69.2 % (39-53); RED BLOOD COUNT 3.22 M/uL (4.00-5.50); WHITE BLOOD COUNT 12.1 K/uL (4.1-10.2)
[2017-09-13 08:04] LABS: CHLORIDE 109 MEQ/L (99-109); CREATININE 0.3 MG/DL (0.6-1.3); GFR ESTIMATE (CALCULATED) > 59 mL/min/ (58.99-99999); GLUCOSE 124 mg/dL (70-99); MAGNESIUM 1.7 mg/dl (1.3-2.7); PHOSPHORUS 2.4 mg/dL (2.5-4.9); POTASSIUM 4.3 MEQ/L (3.7-5.4); SODIUM 139 MEQ/L (136-147); UREA NITROGEN (BUN) 15 mg/dL (9-23)
[2017-09-13 11:42] VITALS: BP 134/67
[2017-09-13 13:00] LABS: 24 HR VOLUME 3100 MLS; URINE UREA NITROGEN 8804 MG/24 HR
[2017-09-13 17:44] VITALS: BP 130/60
[2017-09-13 20:30] VITALS: BP 135/68
[2017-09-14] VITALS: BP 130/63
[2017-09-14 03:57] VITALS: BP 132/66
[2017-09-14 05:58] LABS: HEMOGLOBIN 8.6 G/DL (12.5-16.6); MCH 27.2 PG (29.0-34.0); MCHC 33.1 G/DL (30.0-36.0); MCV 82.3 FL (86-99); PLATELET COUNT 565 K/uL (156-360); RBC DIS.WIDTH-CV 24.7 % (11.8-14.6); RBC DIS.WIDTH-SD 70.2 % (39-53); RED BLOOD COUNT 3.16 M/uL (4.00-5.50); WHITE BLOOD COUNT 10.7 K/uL (4.1-10.2)
[2017-09-14 06:43] LABS: CHLORIDE 106 MEQ/L (99-109); CREATININE 0.3 MG/DL (0.6-1.3); GFR ESTIMATE (CALCULATED) > 59 mL/min/ (58.99-99999); GLUCOSE 116 mg/dL (70-99); MAGNESIUM 1.6 mg/dl (1.3-2.7); PHOSPHORUS 2.9 mg/dL (2.5-4.9); POTASSIUM 4.3 MEQ/L (3.7-5.4); SODIUM 139 MEQ/L (136-147); UREA NITROGEN (BUN) 18 mg/dL (9-23)
[2017-09-14 08:00] VITALS: BP 133/66
[2017-09-14 11:43] VITALS: BP 121/71
[2017-09-14 18:19] VITALS: BP 127/74
[2017-09-14 20:10] VITALS: BP 127/80
[2017-09-15 02:46] VITALS: BP 130/80
[2017-09-15 05:38] LABS: HEMATOCRIT 24.7 % (38.0-50.0); HEMOGLOBIN 8.2 G/DL (12.5-16.6); MCH 27.4 PG (29.0-34.0); MCHC 33.2 G/DL (30.0-36.0); MCV 82.6 FL (86-99); PLATELET COUNT 602 K/uL (156-360); RBC DIS.WIDTH-CV 24.5 % (11.8-14.6); RBC DIS.WIDTH-SD 70.4 % (39-53); RED BLOOD COUNT 2.99 M/uL (4.00-5.50); WHITE BLOOD COUNT 11.1 K/uL (4.1-10.2)
[2017-09-15 06:17] LABS: CHLORIDE 105 MEQ/L (99-109); CREATININE 0.3 MG/DL (0.6-1.3); GFR ESTIMATE (CALCULATED) > 59 mL/min/ (58.99-99999); GLUCOSE 116 mg/dL (70-99); PHOSPHORUS 2.9 mg/dL (2.5-4.9); POTASSIUM 4.1 MEQ/L (3.7-5.4); SODIUM 136 MEQ/L (136-147); UREA NITROGEN (BUN) 20 mg/dL (9-23)
[2017-09-15 06:23] LABS: MAGNESIUM 1.9 mg/dl (1.3-2.7)
[2017-09-15 07:48] VITALS: BP 128/87
[2017-09-15 10:56] VITALS: BP 129/68
[2017-09-15 15:08] VITALS: BP 115/67
[2017-09-15 19:00] VITALS: BP 111/63
[2017-09-15 23:47] VITALS: BP 119/65
[2017-09-16 04:35] VITALS: BP 119/69
[2017-09-16 06:27] LABS: HEMATOCRIT 23.7 % (38.0-50.0); HEMOGLOBIN 7.7 G/DL (12.5-16.6); MCH 26.9 PG (29.0-34.0); MCHC 32.5 G/DL (30.0-36.0); MCV 82.9 FL (86-99); PLATELET COUNT 641 K/uL (156-360); RBC DIS.WIDTH-CV 24.4 % (11.8-14.6); RBC DIS.WIDTH-SD 70.4 % (39-53); RED BLOOD COUNT 2.86 M/uL (4.00-5.50); WHITE BLOOD COUNT 10.8 K/uL (4.1-10.2)
[2017-09-16 06:45] LABS: CHLORIDE 105 MEQ/L (99-109); CREATININE 0.3 MG/DL (0.6-1.3); GFR ESTIMATE (CALCULATED) > 59 mL/min/ (58.99-99999); GLUCOSE 109 mg/dL (70-99); PHOSPHORUS 3.2 mg/dL (2.5-4.9); POTASSIUM 4.3 MEQ/L (3.7-5.4); SODIUM 136 MEQ/L (136-147); UREA NITROGEN (BUN) 19 mg/dL (9-23)
[2017-09-16 06:49] LABS: MAGNESIUM 2.2 mg/dl (1.3-2.7)
[2017-09-16 07:20] VITALS: BP 132/71
[2017-09-16] MEDS ORDERED: XARELTO20 MG PO (12:03)
[2017-09-16] MEDS ORDERED: AUGMENTIN875 MG PO (12:04)
[2017-09-16] MEDS ORDERED: DIFLUCAN100 MG PO (12:04)
[2017-09-16] MEDS ORDERED: ENDOCET 5-3251 EACH PO (12:04)
[2017-09-16] MEDS ORDERED: LASIX20 MG PO (12:04)
[2017-09-16] MEDS ORDERED: DRONABINOL2.5 MG PO (12:04)
[2017-09-16 15:19] VITALS: BP 143/68
== END 2017-09-16 16:13 | disposition designated cancer center or children's hospital (05) | DRG 329 ==
LOC: EME 10:58 → 5WEST 13:48 → EDOF 13:48 → ENRESERV 13:51 → 5WEST 19:42 → ENRESERV 08-31 13:24 → 5WEST 08-31 20:50 → ENRESERV 08-31 22:07 → 4WEST 08-31 22:41 → ENRESERV 09-02 12:14 → 5EAST 09-02 19:57 → ENRESERV 09-08 16:24 → 4EAST 09-08 18:04
PROVIDERS: Family Medicine; Internal Medicine; Physician Assistant; Physician Assistant Surgical; Specialist; Student in an Organized Health Care Education/Training Program
PROC: 30233K1 Transfusion of Nonautologous Frozen Plasma into Peripheral Vein, Percutaneous Approach (ICD-10-PCS; principal; 2017-08-31)
PROC: 30233N1 Transfusion of Nonautologous Red Blood Cells into Peripheral Vein, Percutaneous Approach (ICD-10-PCS; principal; 2017-08-31)
PROC: 0DBU0ZZ Excision of Omentum, Open Approach (ICD-10-PCS; 2017-08-31)
PROC: 0WJP4ZZ Inspection of Gastrointestinal Tract, Percutaneous Endoscopic Approach (ICD-10-PCS; 2017-08-31)
PROC: 0DTF0ZZ Resection of Right Large Intestine, Open Approach (ICD-10-PCS; 2017-08-31)
PROC: 3E0436Z Introduction of Nutritional Substance into Central Vein, Percutaneous Approach (ICD-10-PCS; 2017-09-09)
PROC: 02HV33Z Insertion of Infusion Device into Superior Vena Cava, Percutaneous Approach (ICD-10-PCS; 2017-09-09)
PROC: 0W9G30Z Drainage of Peritoneal Cavity with Drainage Device, Percutaneous Approach (ICD-10-PCS; 2017-09-12)
DX: C18.2 Malignant neoplasm of ascending colon (principal); K55.049 Acute infarction of large intestine, extent unspecified; K56.699 Other intestinal obstruction unspecified as to partial versus complete obstruction; E43 Unspecified severe protein-calorie malnutrition; C77.2 Secondary and unspecified malignant neoplasm of intra-abdominal lymph nodes; C78.6 Secondary malignant neoplasm of retroperitoneum and peritoneum; K92.2 Gastrointestinal hemorrhage, unspecified; E87.1 Hypo-osmolality and hyponatremia; E83.51 Hypocalcemia; E83.39 Other disorders of phosphorus metabolism; R34 Anuria and oliguria; E87.70 Fluid overload, unspecified; E16.2 Hypoglycemia, unspecified; R60.1 Generalized edema; T81.4XXA Infection following a procedure, initial encounter; L76.32 Postprocedural hematoma of skin and subcutaneous tissue following other procedure; Y83.2 Surgical operation with anastomosis, bypass or graft as the cause of abnormal reaction of the patient, or of later complication, without mention of misadventure at the time of the procedure; B96.20 Unspecified Escherichia coli [E. coli] as the cause of diseases classified elsewhere; E87.6 Hypokalemia; I87.8 Other specified disorders of veins; D50.0 Iron deficiency anemia secondary to blood loss (chronic); K21.9 Gastro-esophageal reflux disease without esophagitis; Z79.01 Long term (current) use of anticoagulants; Z80.0 Family history of malignant neoplasm of digestive organs; Z86.711 Personal history of pulmonary embolism
CPT/HCPCS: 36600; 49406; 71045; 74018; 74019; 74177; 80048; 80051; 80053; 80076; 81003; 81050; 82150 91; 82248; 82272; 82378; 82575; 82803; 82945; 83690; 83735; 83880; 84100; 84134; 84156; 84443; 84478; 84540; 84630 90; 85014; 85018; 85025; 85027; 85610; 85730; 86140; 86850; 86900; 86901; 86920; 87070; 87075; 87077; 87186; 87205; 87493; 87641; 88309; 89051; 93306; 93971; 94002; 94003; 94799; 97530 GO; 97530 GP; 99281; 99285; C1729; C1751; C1769; C9113; J1450; J1626; J1650; J1940; J2405; J2543; J2704; J2795; J3475; J3480; J7030; J7050; P9016; P9017; P9045; P9047; Q0167; S0030; S0074